=== PATIENT | male | born 1935 | race Hispanic/Latino ===

== ENCOUNTER 2018-09-21 13:24 | Outpatient (CLI) | payer MEDICARE | END 2018-09-21 13:25 | disposition home or self-care (01) | LOC: CARDIO 13:24 | DX: Z45.010 Encounter for checking and testing of cardiac pacemaker pulse generator [battery] (principal) ==

== ENCOUNTER 2018-12-19 14:15 | Outpatient (CLI) | payer MEDICARE | END 2018-12-19 14:16 | disposition home or self-care (01) | LOC: CARDIO 14:15 ==

== ENCOUNTER 2019-01-02 06:01 | Outpatient (CLI) | payer MEDICARE | END 2019-01-02 06:02 | disposition home or self-care (01) | LOC: CARDIO 06:01 ==

== ENCOUNTER 2019-01-11 10:29 | Outpatient (CLI) | payer MEDICARE | END 2019-01-11 10:30 | disposition home or self-care (01) | LOC: RAD 10:29 ==